=== PATIENT | female | born 1955 | race African-American/Black ===

== ENCOUNTER 2022-05-10 11:01 | Inpatient (IN) | payer OTHER ==
[2022-05-10 12:01] VITALS: BMI 30.9
[2022-05-10] MEDS ORDERED: LOPERAMIDE HCL 2 MG CAPSULE PO PRN (12:43)
[2022-05-10] MEDS ORDERED: MAGNESIUM HYDROX 2400MG/30ML ORAL SUSPENSION 30 ML CUP PO PRN (12:43)
[2022-05-10] MEDS ORDERED: NICOTINE POLACRILEX 4 MG GUM BUC PRN (12:43)
[2022-05-10] MEDS ORDERED: POLYETHYLENE GLYCOL (HEALTHYLAX) 3350 17 GM PACKET PO PRN (12:43)
[2022-05-10] MEDS ORDERED: BENZONATATE 200 MG CAPSULE PO PRN (12:43)
[2022-05-10] MEDS ORDERED: DICYCLOMINE HCL 10 MG CAPSULE PO PRN (12:43)
[2022-05-10] MEDS ORDERED: BENZOCAINE/MENTHOL (CHLORASEPTIC ) LOZENGE MM PRN (12:43)
[2022-05-10] MEDS ORDERED: NICOTINE 21 MG/24 HOURS TOPICAL PATCH TD PRN (12:43)
[2022-05-10] MEDS ORDERED: ONDANSETRON *ODT* 4 MG TABLET SL PRN (12:43)
[2022-05-10] MEDS ORDERED: ACETAMINOPHEN 325 MG TABLET (FP) PO PRN (12:43)
[2022-05-10] MEDS ORDERED: NICOTINE 10 MG CARTRIDGE (INHALER) IH PRN (12:43)
[2022-05-10] MEDS ORDERED: IBUPROFEN 600 MG TABLET (FP) PO PRN (12:43)
[2022-05-10] MEDS ORDERED: MAG HYDROX/AL HYDROX/SIMETH 30 ML UNIT-DOSE CUP PO PRN (12:43)
[2022-05-10] MEDS ORDERED: guaiFENesin 600 MG TABLET.ER (FP) PO PRN (12:43)
[2022-05-10] MEDS ORDERED: IBUPROFEN 400 MG TABLET (FP) PO PRN (12:43)
[2022-05-10] MEDS ORDERED: BISMUTH SUBSALICYLATE 262 MG/15 ML BTL PO PRN (12:43)
[2022-05-10] MEDS ORDERED: METHOCARBAMOL 500 MG TABLET PO PRN (12:43)
[2022-05-10] MEDS ORDERED: amLODIPine BESYLATE 5 MG TABLET (FP) ONE (13:57)
[2022-05-10] MEDS ORDERED: amLODIPine BESYLATE 2.5 MG TABLET (FP) PO SCH (14:00)
[2022-05-10 17:31] LABS: HEMOGLOBIN 12.7 GM/dL (10.7-15.3); MCH 29.8 pg (25.7-33.7); MCHC 33.6 g/dl (32.0-36.0); MEAN CELL VOLUME 88.7 fl (80-96); MEAN PLT VOLUME 10.1 fl (7.5-11.1); PLATELET COUNT 286 10^3/uL (134-434); RBC 4.28 M/mm3 (3.60-5.2); WHITE BLOOD COUNT 5.1 K/mm3 (4.0-10.0)
[2022-05-10 18:09] LABS: ALBUMIN 3.4 g/dl (3.4-5.0); BLOOD UREA NITROGEN 13.8 mg/dL (7-18); CALCIUM 9.7 mg/dL (8.5-10.1)
[2022-05-10 18:14] LABS: BILIRUBIN,TOTAL 0.6 mg/dL (0.2-1); TOT PROT 6.5 g/dl (6.4-8.2)
[2022-05-10] MEDS ORDERED: amLODIPine BESYLATE 5 MG TABLET (FP) PO ONE (18:15)
[2022-05-10] MEDS ORDERED: cloNIDine HCL 0.1 MG TABLET PO ONE (20:54)
[2022-05-10] MEDS: hydrOXYzine PAMOATE 25 MG CAPSULE (FP) PO PRN (21:03)
[2022-05-10] MEDS: MELATONIN 5 MG TABLETS PO SCH (22:41)
[2022-05-10] MEDS: THIAMINE HCL 100 MG TABLET (FP) PO SCH (22:41)
[2022-05-11] MEDS: PRENATAL VITAMINS W/ FOLIC ACID TABLET (FP) PO SCH (10:37)
[2022-05-11] MEDS: amLODIPine BESYLATE 5 MG TABLET (FP) PO SCH (10:38)
[2022-05-11] MEDS ORDERED: cloNIDine HCL 0.1 MG TABLET PO ONE (18:22)
[2022-05-11] MEDS: hydrOXYzine PAMOATE 25 MG CAPSULE (FP) PO PRN (22:45)
[2022-05-11] MEDS: MELATONIN 5 MG TABLETS PO SCH (22:45)
[2022-05-11] MEDS: THIAMINE HCL 100 MG TABLET (FP) PO SCH (22:45)
[2022-05-12 09:26] VITALS: BP 168/98; PULSE 98; RESP 18; TEMP 98.1
[2022-05-12] MEDS: amLODIPine BESYLATE 5 MG TABLET (FP) PO SCH (10:43)
[2022-05-12] MEDS: PRENATAL VITAMINS W/ FOLIC ACID TABLET (FP) PO SCH (10:43)
== END 2022-05-12 10:44 | disposition home or self-care (01) | DRG 897 ==
LOC: YASAS 11:01 → Y3N 12:45
PROVIDERS: ADMIT Allergy & Immunology; ATTEND Surgery
PROC: HZ2ZZZZ Detoxification Services for Substance Abuse Treatment (ICD-10-PCS; principal; 2022-05-10)
DX: F10.230 Alcohol dependence with withdrawal, uncomplicated (principal); F14.20 Cocaine dependence, uncomplicated; F20.0 Paranoid schizophrenia; F12.20 Cannabis dependence, uncomplicated; F17.210 Nicotine dependence, cigarettes, uncomplicated; I10 Essential (primary) hypertension
CPT/HCPCS: 36415; 80053; 82140; 85027; 86593; 86780; 87811; 93005; 93010; C9803-CS; U0003; U0005